=== PATIENT | female | born 1985 | race Caucasian/White ===

== ENCOUNTER → 2019-05-03 | Emergency (ER) | payer OTHER ==
[~2019-05-03] VITALS: Ht 149.9 cm; Wt 60.8 kg
[~2019-05-03] MED LIST: ATABEX OB TABL1 EACH PO; INTESTINEX680 MG PO; LEVSIN0.125 MG PO; SYNTHROID50 MCG PO
== END | disposition home or self-care (01) ==
LOC: ER 14:19
DX: O98.511 Other viral diseases complicating pregnancy, first trimester (principal); Z34.01 Encounter for supervision of normal first pregnancy, first trimester

== ENCOUNTER 2019-07-22 11:17 | Inpatient (IN) | payer OTHER ==
[~2019-07-22] VITALS: Ht 149.9 cm; Wt 64.9 kg
[2019-07-26] MEDS ORDERED: LABETALOL HCL200 MG PO (07:43)
== END 2019-07-26 09:15 | disposition home or self-care (01) | DRG 833 ==
LOC: LDR 11:17 → OB/GYN 07-23 08:08
PROVIDERS: ADMIT Obstetrics & Gynecology
PROC: BY4CZZZ Ultrasonography of Second Trimester, Single Fetus (ICD-10-PCS; principal; 2019-07-22)
DX: O13.2 Gestational [pregnancy-induced] hypertension without significant proteinuria, second trimester (principal); O99.282 Endocrine, nutritional and metabolic diseases complicating pregnancy, second trimester; Z3A.22 22 weeks gestation of pregnancy

== ENCOUNTER → 2019-08-24 | Outpatient (CLI) | payer OTHER ==
[~2019-08-24] MED LIST changes: +LABETALOL HCL200 MG PO
== END | disposition home or self-care (01) ==
LOC: PRENATAL 09:36
DX: O99.89 Other specified diseases and conditions complicating pregnancy, childbirth and the puerperium (principal); O34.211 Maternal care for low transverse scar from previous cesarean delivery; O13.2 Gestational [pregnancy-induced] hypertension without significant proteinuria, second trimester; Z36.89 Encounter for other specified antenatal screening

== ENCOUNTER → 2019-09-08 | Outpatient (CLI) | payer OTHER ==
[~2019-09-08] MED LIST changes: +ASA81 MG PO
== END | disposition home or self-care (01) ==
LOC: PRENATAL 11:27
PROVIDERS: ATTEND Obstetrics & Gynecology
DX: O26.843 Uterine size-date discrepancy, third trimester (principal); O99.89 Other specified diseases and conditions complicating pregnancy, childbirth and the puerperium; O36.5931 Maternal care for other known or suspected poor fetal growth, third trimester, fetus 1; O34.211 Maternal care for low transverse scar from previous cesarean delivery; O13.3 Gestational [pregnancy-induced] hypertension without significant proteinuria, third trimester

== ENCOUNTER → 2019-09-28 | Outpatient (CLI) | payer OTHER | END | disposition home or self-care (01) | LOC: PRENATAL 08:00 | PROVIDERS: ATTEND Obstetrics & Gynecology | DX: O26.843 Uterine size-date discrepancy, third trimester (principal); O36.5931 Maternal care for other known or suspected poor fetal growth, third trimester, fetus 1; O34.211 Maternal care for low transverse scar from previous cesarean delivery; O13.3 Gestational [pregnancy-induced] hypertension without significant proteinuria, third trimester; O99.89 Other specified diseases and conditions complicating pregnancy, childbirth and the puerperium ==

== ENCOUNTER 2019-10-19 10:11 | Inpatient (IN) | payer OTHER ==
[~2019-10-19] VITALS: Ht 149.9 cm; Wt 1.4 kg
[~2019-10-19 10:11] MED LIST changes: -ASA81 MG PO
[2019-10-19] MEDS ORDERED: ASA81 MG PO (10:52)
== END 2019-10-23 08:23 | DRG 783 ==
LOC: LDR 10:11 → OB/GYN 10:11
PROVIDERS: ADMIT Obstetrics & Gynecology; ATTEND Obstetrics & Gynecology
PROC: 0UB70ZZ Excision of Bilateral Fallopian Tubes, Open Approach (ICD-10-PCS; 2019-10-19)
PROC: 4A1HXCZ Monitoring of Products of Conception, Cardiac Rate, External Approach (ICD-10-PCS; 2019-10-19)
PROC: 10D00Z1 Extraction of Products of Conception, Low, Open Approach (ICD-10-PCS; principal; 2019-10-19 15:30)
DX: O82 Encounter for cesarean delivery without indication (principal); O60.14X1 Preterm labor third trimester with preterm delivery third trimester, fetus 1; O14.13 Severe pre-eclampsia, third trimester; O34.211 Maternal care for low transverse scar from previous cesarean delivery; O36.8331 Maternal care for abnormalities of the fetal heart rate or rhythm, third trimester, fetus 1; O36.5931 Maternal care for other known or suspected poor fetal growth, third trimester, fetus 1; Z3A.36 36 weeks gestation of pregnancy; Z37.0 Single live birth; Z30.2 Encounter for sterilization; Z22.330 Carrier of Group B streptococcus

== ENCOUNTER → 2019-10-19 | Outpatient (CLI) | payer OTHER | END | disposition home or self-care (01) | LOC: PRENATAL 08:00 | PROVIDERS: ATTEND Obstetrics & Gynecology | DX: O26.843 Uterine size-date discrepancy, third trimester (principal); O36.5931 Maternal care for other known or suspected poor fetal growth, third trimester, fetus 1; O99.89 Other specified diseases and conditions complicating pregnancy, childbirth and the puerperium; O34.211 Maternal care for low transverse scar from previous cesarean delivery; O13.3 Gestational [pregnancy-induced] hypertension without significant proteinuria, third trimester; O09.293 Supervision of pregnancy with other poor reproductive or obstetric history, third trimester ==